=== PATIENT | female | born 1985 | race Caucasian/White ===

== ENCOUNTER 2023-06-04 08:39 | Emergency (ER) | payer OTHER, SELFPAY ==
[2023-06-04 08:44] VITALS: BP 133/79
[2023-06-04 08:53] LABS: Glucose - Point of Care 131 mg/dl (70-99)
[2023-06-04 09:11] LABS: % Basophils 0.4 % (0-2); % Eosinophils 0.5 % (0-6); % Immature Granulocytes 0.3 % (0-0.5); % Lymphocytes 21.3 % (20.5-51.1); % Monocytes 6.6 % (1.7-9.3); % Neutrophils 70.9 % (42.2-75.2); Absolute Lymphocytes 1.6 10^3/uL (1.2-3.4); Absolute Monocytes 0.5 10^3/uL (0.1-0.6); Absolute Neutrophils 5.4 10^3/uL (1.4-6.5); Hematocrit 40.2 % (37.0-47.0); Hemoglobin 13.9 g/dL (12.0-16.0); Mean Corp Hgb Conc. 34.6 g/dL (33.0-37.0); Mean Corpuscular Hgb 30.2 pg (27.0-31.0); Mean Corpuscular Volume 87.2 fL (81.0-99.0); Mean Platelet Volume 11.5 fL (7.4-10.4); Nucleated Red Blood Cells % 0 %; Platelet Count 279 10^3/uL (130-400); Red Blood Cell Count 4.61 10^6/uL (4.20-5.40); Red Cell Dist. Width 13.2 % (11.5-14.5); White Blood Cell Count 7.6 10^3/uL (4.8-10.8)
[2023-06-04 09:25] LABS: ALT (SGPT) 13 U/L (0-35); AST (SGOT) 17 U/L (14-36); Albumin 4.6 g/dl (3.5-5.0); Alkaline Phosphatase 70 U/L (38-126); Blood Urea Nitrogen 11 mg/dl (7-17); Calcium 9.8 mg/dl (8.4-10.2); Carbon Dioxide 23 mmol/L (22-30); Chloride 107 mmol/L (98-107); Glucose 129 mg/dl (70-99); Potassium 3.8 mmol/L (3.5-5.1); Sodium 138 mmol/L (135-145); Total Bilirubin 0.7 mg/dl (0.2-1.3); Total Protein 7.4 g/dl (6.3-8.2); eGFR > 60.00
[2023-06-04 10:18] LABS: Erythrocyte Sed Rate 14 mm/hour (0-20)
--- NOTE | 2023-06-04 10:41 | ED.GENMED ---
History of Present Illness
General
Chief Complaint: Dizziness
Source: patient and spouse
Exam Limitations: none
Time Seen by Provider: 06/04/23 10:17
Nursing documentation reviewed up to this point in time: agreed with
Travel History
Have you had any contact with someone who has COVID-19?: No
Do you have any symptoms of coronavirus? Fever > 100 degrees, chills, cough, shortness of breath, sore throat, loss of taste or smell, muscle aches, or headache?: No
History of Present Illness
History of Present Illness:
Patient is a 38-year-old female who presents to the emergency department complaining of approximately 5 days of feeling anxious with difficulty sleeping and waking with palpitations as well as a 5 pound weight loss and feeling nauseous. Patient
states that she has been being treated for lichen planus since February and does not seem to be getting better and she was getting anxious about it. Patient denies fever or chills. Patient denies nasal congestion, sore throat or cough. Patient
denies chest pain. Patient does feel short of breath when she gets the palpitations which she says her heart is racing. Patient has diminished appetite but denies any abdominal pain, nausea, vomiting or diarrhea. Patient denies any symptoms.
Patient denies any leg pain or swelling. Patient does admit to pruritus.
Past History
Past History
ED Past Medical History: GERD, HTN, Hypercholesterolemia and NIDDM
ED Past Surgical History: None
Social History
Tobacco: Smoker
Alcohol: Occasional
Drug: None
Personal:
Living: with family
Employment: Employed
Family History
Family History: Other (Noncontributory)
Review of Systems
Review of Systems
All Other Systems: ROS reviewed and negative except as documented in HPI and ROS
Constitutional: Reports weight loss, fatigue and sleep disturbance; Denies fever or chills
EENT: Reports no symptoms
Respiratory: Reports no symptoms
Cardiac: Reports palpitations; Denies chest pain, diaphoresis or syncope
ABD/GI: Reports anorexia; Denies abdominal pain, nausea, vomiting, diarrhea or constipated
: Reports no symptoms
Musculoskeletal: Reports no symptoms
Skin: Reports itching and rash
Neurological: Reports no symptoms
Hematologic/Lymphatic: Reports no symptoms
Psychiatric: Reports anxiety; Denies suicidal
Phy Exam
Physical Exam
Physical Exam:
Physical Exam
General: mild distress, alert and appropriate, well nourished, well hydrated
HENT: Normocephalic, supple with no lymphadenopathy, no thyromegaly
Eyes: Clear sclera, conjuctiva without injection
Heart: Regular rhythm and rate. No S3, S4. No murmur. No NVD
Lungs: No respiratory distress, no stridor, lung sounds clear and equal bilaterally
Abdomen: Soft, nontender, no organomegaly, no CVA tenderness, BS good
Neuro: Alert and oriented x 3, CN II - XII intact, no motor focality, no cerebellar dysfunction
Skin: diffuse faded erythematous papules
Psychiatric: well kept. interactive and cooperative. Anxious
Extremities: No edema, cyanosis, tenderness, Good and equal peripheral pulses.
Course
Orders/Labs/Results
Orders:
Orders
06/04/23 08:56
C-Reactive Protein Urgent
Comment: ADD ON
CMP [Comprehensive Metabolic Panel] Urgent
Complete Blood Count/With Diff Urgent
Erythrocyte Sed Rate Urgent
Comment: ADD ON
HCG, Serum Qualitative Screen Urgent
Comment: ADD ON
TSH Reflex To Free T4 Urgent
Comment: ADD ON
06/04/23 09:51
Add On- LAB Urgent
Tests Added?: ESR, CRP
06/04/23 10:32
Add On- LAB Urgent
Tests Added?: tsh reflex t4
0.9% Sodium Chloride 1000 ml [Nss] 1,000 ml IV BOLUS
Lorazepam [Ativan] 1 mg IV NOW STA
06/04/23 10:33
Electrocardiogram (*1) Urgent
Reason for Study: Palpitations
EKG- Treatment ONCE
06/04/23 11:09
Add On- LAB Urgent
Tests Added?: aerum qualitative hcg
Abnormal Lab Results
06/04/23 06/04/23
08:52 08:56
MPV 11.5 H fL
(7.4-10.4)
Glucose 129 H mg/dl
(70-99)
POC Glucose 131 H mg/dl
(70-99)
06/04/23 08:56
06/04/23 08:56
Vital Signs
Initial and Last Documented VS:
Initial Vital Signs
Temp Pulse Resp BP Pulse Ox
98.9 F 72 16 133/79 100
06/04/23 08:44 06/04/23 08:44 06/04/23 08:44 06/04/23 08:44 06/04/23 08:44
Last Documented Vital Signs
Temp Pulse Resp BP Pulse Ox
98.9 F 82 18 116/79 98
06/04/23 08:44 06/04/23 13:00 06/04/23 13:00 06/04/23 13:00 06/04/23 13:00
*Pulse Oximetry
Patient hypoxic: no
*Critical Care Note
Total Time (30-74mins, 75-104mins- exclusive of procedures): Not Applicable
Update Note
Update Note:
Patient admits to feeling anxious especially with regards to her dermatologic condition. Patient had a echocardiogram in September that was unremarkable. Patient had been on lisinopril and developed a cough so she was switched to losartan which may
have exacerbated or caused the lichen planus. Will try the patient on low-dose Toprol at bedtime along with a short course of Xanax. Patient will be instructed to follow-up with her aligning inspector for possible Holter/event monitor
ED Attending Note
-
Portions of this chart may have been created with voice recognition software.� Occasional wrong word or��sound alike� substitutions may have occurred due to the inherent limitations of voice recognition software.
Discharge Plan
Departure
Patient Disposition: Home (Routine Discharge)
Date of Disposition: 06/04/23
Time of Disposition: 13:21
Patient with high blood pressure during this ER visit?: No
Condition: Good
Covid-19: Not Applicable
Discharge Problem:
Palpitations, Anxiety
Instructions: Anxiety, Adult (DC), Palpitations (DC)
Prescriptions:
New
metoprolol succinate [Toprol XL] 25 mg tablet extended release 24 hr
25 mg PO HS Qty: 30 0RF
alprazolam [Xanax] 0.5 mg Tablet
0.5 mg PO HS Qty: 11 0RF
No Action
pantoprazole 40 MG tablet,delayed release (DR/EC)
40 mg PO DAILY Qty: 30 0RF
pantoprazole 40 MG tablet,delayed release (DR/EC)
40 mg PO DAILY Qty: 30 0RF
prednisone 50 MG tablet
50 mg PO DAILY Qty: 5 0RF
clindamycin HCl 150 MG capsule
300 mg PO Q6 Qty: 60 0RF
hydrocodone-acetaminophen 1 TABLET tablet
1 tab PO Q4HPRN PRN (Reason: pain) Qty: 10 0RF
Referrals:
Jc Rosales MD [Family Provider] - Follow up in 5-7 days
Lazaro López MD [Active] - Call in 1-3 days for appt
Shaheen Campos MD [Consulting Staff] - Call in 1-3 days for appt
Activity Restrictions/Additional Instructions:
Do not take the losartan. Make sure to follow-up with your family doctor. When you see your aligning inspector you may need a Holter/event monitor.
Interventions
Interventions:
*Risk Screen - Suicide Last Done: 06/04/23 11:05
*General Assessment Last Done: 06/04/23 11:05
*Neglect/Abuse Screening Last Done: 06/04/23 11:05
ED- Fall Risk Assessment Last Done: 06/04/23 11:05
*ED COVID-19 Vaccine History Last Done: 06/04/23 08:46
ED- Neurological Assessment Last Done: 06/04/23 11:05
ED- Cardiac Assessment Last Done: 06/04/23 11:05
ED Swallowing Screen Last Done: 06/04/23 12:01
Discharge Date and Time
Print Language: PERUVIAN
[2023-06-04 10:50] LABS: C-Reactive Protein < 5.00 mg/L (0.0-10.00)
[2023-06-04 11:03] VITALS: BP 125/74
[2023-06-04 11:05] VITALS: BMI 30.9
[2023-06-04] MEDS: ATIVAN 1 MG IV (11:10)
[2023-06-04] MEDS: NSS 1000 IV (11:10)
[2023-06-04 11:33] LABS: TSH Reflex To Free T4 2.12 uIU/ml (0.47-4.68)
[2023-06-04 11:52] LABS: HCG, Serum Qualitative Screen Negative
[2023-06-04 12:00] VITALS: BP 111/71
--- NOTE | 2023-06-04 12:32 | EDRN ---
Dr. Rosales in room w/pt and spouse at this time.
[2023-06-04 13:00] VITALS: BP 116/79
--- NOTE | 2023-06-04 13:00 | EDRN ---
Dr. Rosales in room w/ pt again.
--- NOTE | 2023-06-04 13:56 | EDRN ---
This RN checked via TT about discharge medications. Pt was informed to take both the amlodipine and toprol. Pt was on losartan until 04/15 when she started amlodipine. She said to me she had not told Dr. Rosales about the amlodipine and asked if
she should continue amlodipine so I TT'd Dr. Rosales and he confirmed pt is to take both meds. I informed pt and she verbalized her understanding to me.
== END 2023-06-04 11:55 | disposition home or self-care (01) ==
LOC: EMR 08:39
PROVIDERS: Emergency Medicine; EMERGENCY PHYSICIAN Emergency Medicine; FAMILY PHYSICIAN Internal Medicine
DX: R00.2 Palpitations (principal); R06.02 Shortness of breath; R11.0 Nausea; F41.9 Anxiety disorder, unspecified; R63.4 Abnormal weight loss; L43.9 Lichen planus, unspecified; E11.9 Type 2 diabetes mellitus without complications; E78.00 Pure hypercholesterolemia, unspecified; I10 Essential (primary) hypertension; K21.9 Gastro-esophageal reflux disease without esophagitis; F17.210 Nicotine dependence, cigarettes, uncomplicated; Z88.6 Allergy status to analgesic agent
CPT/HCPCS: 99284; 96374; 96361 ×2; 80053; 82962; 84443; 84703; 85025; 85652; 86140; 93005

== ENCOUNTER 2023-07-04 18:59 | Emergency (ER) | payer OTHER, SELFPAY ==
[2023-07-04 19:07] VITALS: BP 142/86
[2023-07-04 19:31] LABS: % Basophils 0.3 % (0-2); % Eosinophils 0.7 % (0-6); % Immature Granulocytes 0.2 % (0-0.5); % Lymphocytes 22.7 % (20.5-51.1); % Monocytes 8.5 % (1.7-9.3); % Neutrophils 67.6 % (42.2-75.2); Absolute Eosinophils 0.1 10^3/uL (0-0.7); Absolute Lymphocytes 2.1 10^3/uL (1.2-3.4); Absolute Monocytes 0.8 10^3/uL (0.1-0.6); Absolute Neutrophils 6.1 10^3/uL (1.4-6.5); Hematocrit 41.2 % (37.0-47.0); Hemoglobin 13.5 g/dL (12.0-16.0); Mean Corp Hgb Conc. 32.8 g/dL (33.0-37.0); Mean Corpuscular Hgb 29.5 pg (27.0-31.0); Mean Corpuscular Volume 90.2 fL (81.0-99.0); Mean Platelet Volume 11.4 fL (7.4-10.4); Nucleated Red Blood Cells % 0 %; Platelet Count 243 10^3/uL (130-400); Red Blood Cell Count 4.57 10^6/uL (4.20-5.40); Red Cell Dist. Width 13.1 % (11.5-14.5); White Blood Cell Count 9.1 10^3/uL (4.8-10.8)
[2023-07-04 19:45] LABS: ALT (SGPT) 14 U/L (0-35); AST (SGOT) 18 U/L (14-36); Albumin 4.8 g/dl (3.5-5.0); Alkaline Phosphatase 65 U/L (38-126); Blood Urea Nitrogen 9 mg/dl (7-17); Calcium 10.2 mg/dl (8.4-10.2); Carbon Dioxide 27 mmol/L (22-30); Chloride 104 mmol/L (98-107); Glucose 96 mg/dl (70-99); Potassium 3.9 mmol/L (3.5-5.1); Sodium 140 mmol/L (135-145); Total Bilirubin 0.7 mg/dl (0.2-1.3); Total Protein 7.6 g/dl (6.3-8.2); eGFR > 60.00
[2023-07-04 20:16] LABS: TSH Reflex To Free T4 1.43 uIU/ml (0.47-4.68)
[2023-07-04 21:06] VITALS: BP 140/79
[2023-07-04 22:00] VITALS: BP 118/80
[2023-07-04 23:00] VITALS: BP 118/76
[2023-07-05] VITALS: BP 123/81
--- NOTE | 2023-07-05 02:09 | ED.GENMED ---
History of Present Illness
General
Chief Complaint: Heart Rate Problem
Source: patient and records
Exam Limitations: none
Time Seen by Provider: 07/04/23 20:58
Nursing documentation reviewed up to this point in time: agreed with
Travel History
Have you had any contact with someone who has COVID-19?: No
Do you have any symptoms of coronavirus? Fever > 100 degrees, chills, cough, shortness of breath, sore throat, loss of taste or smell, muscle aches, or headache?: No
History of Present Illness
History of Present Illness:
38-year-old female with a past medical history of hypertension, hyperlipidemia, ex-smoker who presents to the emergency department for evaluation of palpitations. Patient reports that this has been an ongoing issue for the past month. She
describes a pattern of waking up in the morning with palpitations�she says palpitations typically wake her up around 5 AM. She says that when she gets these palpitations she begins to feel very anxious and becomes nauseated. She says that the
palpitations are not as bad later in the day but they do happen occasionally throughout the day with no clear trigger. For this reason she has had increased anxiety, nausea and poor appetite. She does not have any chest pain or breathing
difficulties. She does not have any syncope associated with the symptoms or even dizziness although she does feel more fatigued recently. She feels that symptoms are increasing over the past 2 weeks. She was initially seen for this in the
emergency room was told that it could be anxiety related was prescribed Xanax and low dose metoprolol for trial and was referred to cardiology. She says that she saw Dr. Joiner in the office--she says that she was instructed not to use the
metoprolol. Instead decision was made to discontinue all her medication including her blood pressure medication and so 2 weeks ago she took for a trial where she discontinued her blood pressure medication (losartan) which did not help and so she
resumed blood pressure medicine. She says that she did ask about a Holter monitor but baggage security checker wanted to hold off at least initially. She says that she ultimately never tried metoprolol and she also did not try any of the Xanax because she
says that she is convinced that her symptoms are not anxiety driven. She says that she is very frustrated and so she came to the emergency room to be reassessed for symptoms.
Past History
Past History
ED Past Medical History: GERD, HTN, Hypercholesterolemia and NIDDM
ED Past Surgical History: None
Social History
Tobacco: Smoker
Alcohol: Occasional
Drug: None
Personal:
Living: with family
Employment: Employed
Family History
Family History: Other (Noncontributory)
Review of Systems
Review of Systems
All Other Systems: ROS reviewed and negative except as documented in HPI and ROS
Constitutional: Reports fatigue; Denies fever
Respiratory: Denies cough or trouble breathing
Cardiac: Reports palpitations; Denies chest pain or syncope
ABD/GI: Reports nausea and anorexia; Denies abdominal pain, vomiting or diarrhea
: Denies flank pain
Musculoskeletal: Denies neck pain or back pain
Neurological: Denies headache, weakness or numbness
Phy Exam
Physical Exam
Physical Exam:
General: Awake, alert, oriented x3; anxious/frustrated but no acute distress
Head: Normocephalic, atraumatic
Eyes: Conjunctiva normal, EOMI
Throat: Airway intact, handling secretions
Neck: Trachea midline, supple without meningismus
Lungs: Clear to auscultation bilaterally, no wheezing, rales, rhonchi
Heart: Regular rate and rhythm, no murmurs, gallops, or rubs appreciated
Abd: Soft, non distended, nontender
Neuro: Cranial nerves grossly intact, speech fluid
Skin: no rash
Extremities: No edema in extremities, equal pulses in all extremities
Scores
Heart Failure Risk
Heart Failure Risk Score: Not Applicable
Heart Score for Chest Pain Patients
STEMI patient?: Not applicable
Withdrawal Assessment of Alcohol
Withdrawal Assessment Completed?: Not applicable
Course
Orders/Labs/Results
Orders:
Orders
07/04/23 19:09
Electrocardiogram (*1) Urgent
Reason for Study: Palpitations
07/04/23 19:10
EKG- Treatment ONCE
07/04/23 19:21
CMP [Comprehensive Metabolic Panel] Urgent
Complete Blood Count/With Diff Urgent
TSH Reflex To Free T4 Urgent
Abnormal Lab Results
07/04/23
19:21
MCHC 32.8 L g/dL
(33.0-37.0)
MPV 11.4 H fL
(7.4-10.4)
Absolute Monos (auto) 0.8 H 10^3/uL
(0.1-0.6)
Creatinine 0.5 L mg/dL
(0.6-1.0)
07/04/23 19:21
07/04/23 19:21
Vital Signs
Initial and Last Documented VS:
Initial Vital Signs
Temp Pulse Resp BP Pulse Ox
36.6 C 82 18 142/86 100
07/04/23 19:07 07/04/23 19:07 07/04/23 19:07 07/04/23 19:07 07/04/23 19:07
Last Documented Vital Signs
Temp Pulse Resp BP Pulse Ox
36.6 C 68 20 123/81 96
07/04/23 19:07 07/05/23 00:30 07/05/23 00:30 07/05/23 00:00 07/05/23 00:30
MDM/Problems Addressed
Differential Diagnosis Includes:
Cardiac dysrhythmia such as A-fib or SVT, PACs/PVCs, anxiety, sleep apnea consideration as she tends to have the symptoms that jolt her awake
MDM/Problems Addressed:
38-year-old female presents for palpitations that have been an ongoing issue for the past month as described above. She was initially seen in this ER and was also seen by baggage security checker with no clear diagnosis. There was a question of whether this
could be anxiety related. She came back for reassessment because symptoms are failing and she is quite frustrated without clear diagnosis. Vital signs here are within acceptable range. Her EKG shows a sinus rhythm with PACs; she has no delta
wave, no Brugada pattern, no signs of hypertrophy, normal QTc. She had a normal echocardiogram a year ago. Physical exam is benign as above. We have sent basic labs including CBC and CMP which were unremarkable. We sent off thyroid studies which
were normal. Patient was monitored on telemetry here for greater than 4 hours�she did have occasional palpitations and on review of the monitor she has PACs but no other serious events. The PACs do not necessarily track with her symptoms. While
PACs could account for her symptoms, they are unlikely to cause her to jolt awake in the very track sweeper which is one of her primary symptoms. I think sleep apnea is a consideration based on patient's body habitus and the way she is describing
the most severe symptoms which are in the morning. I think would be reasonable to consider a sleep study as she also reports increased fatigue is one of her main symptoms. Dysrhythmia consideration although considered somewhat less likely
especially since she had palpitations here and was in sinus rhythm persistently on the monitor. Nevertheless she is quite dissatisfied with the assessment by the initial baggage security checker; I did provide her information for the welfare interviewer to
consider for a second opinion. There is no clear indication for admission at this point in time I think she is stable to be discharged from the hospital. She will follow-up as above. I did advise her to start low-dose metoprolol to see if this
helps at all with her symptoms. Spoke about return precautions and all questions were answered.
*Pulse Oximetry
Patient hypoxic: no
*EKG
Interpreted by ED Provider?: Yes
Heart Rate: 56
Rate: normal
Rhythm: sinus and PAC's
Sunray: normal axis
Interval: normal interval
QRS Pattern: normal QRS
Ischemia: no ischemia
*Critical Care Note
Total Time (30-74mins, 75-104mins- exclusive of procedures): Not Applicable
Data Reviewed
Review of Other/Old Records Reveals: Labs, Records and Testing (Echocardiogram 10/13/22: CONCLUSIONS Normal left ventricular size, wall thickness and systolic function. No regional wall motion abnormalities are seen. Estimated ejection fraction
is 55- 60%. Normal diastolic function.)
Source: patient and records
ED Attending Note
-
Portions of this chart may have been created with voice recognition software.� Occasional wrong word or��sound alike� substitutions may have occurred due to the inherent limitations of voice recognition software.
Discharge Plan
Departure
Patient Disposition: Home (Routine Discharge)
Date of Disposition: 07/05/23
Time of Disposition: 00:33
Patient with high blood pressure during this ER visit?: No
Discharge Problem:
Heart palpitations, PAC (premature atrial contraction)
Instructions: Palpitations (DC)
Prescriptions:
New
metoprolol succinate [Toprol XL] 25 mg tablet extended release 24 hr
12.5 mg PO DAILY Qty: 30 0RF
No Action
pantoprazole 40 MG tablet,delayed release (DR/EC)
40 mg PO DAILY Qty: 30 0RF
pantoprazole 40 MG tablet,delayed release (DR/EC)
40 mg PO DAILY Qty: 30 0RF
prednisone 50 MG tablet
50 mg PO DAILY Qty: 5 0RF
clindamycin HCl 150 MG capsule
300 mg PO Q6 Qty: 60 0RF
hydrocodone-acetaminophen 1 TABLET tablet
1 tab PO Q4HPRN PRN (Reason: pain) Qty: 10 0RF
metoprolol succinate [Toprol XL] 25 mg tablet extended release 24 hr
25 mg PO HS Qty: 30 0RF
alprazolam [Xanax] 0.5 mg Tablet
0.5 mg PO HS Qty: 11 0RF
Referrals:
Jc Rosales MD [Family Provider] - Call in 1-3 days for appt
Brigido Delgado MD [Active] - Call in 1-3 days for appt (Window Shade Installer)
Activity Restrictions/Additional Instructions:
[facility]
[address], [address]
[place] [address]
Appointments:�[phone]�
Fax:�[phone]
Thank you for visiting the Emergency Department at [facility].
1. Please schedule a follow up appointment as directed. Call first thing tomorrow morning to make an appointment.
2. If indicated, please take your medications as instructed and indicated on discharge paperwork.
3. If any of your symptoms do not improve, or persist, or become more severe within 6-12 hours, please return to the emergency department for further care.
4. Please return to the emergency department if you develop a headache, neck pain/stiffness, fever greater than 100.4F, chest pain, shortness of breath, persistent nausea, vomiting, slurred speech, difficulty walking, numbness/tingling, weakness,
signs of infection or any other symptoms that are worrisome to you.
Please call [phone] if you have any questions.
Interventions
Interventions:
*Risk Screen - Suicide Last Done: 07/04/23 19:07
*General Assessment Last Done: 07/04/23 22:04
*Neglect/Abuse Screening Last Done: 07/04/23 19:07
*ED COVID-19 Vaccine History Last Done: 07/04/23 22:04
*Nursing Disposition Last Done: 07/05/23 00:55
ED- Cardiac Assessment Last Done: 07/04/23 22:04
ED- Pulmonary Assessment Last Done: 07/04/23 22:04
Discharge Date and Time
Discharge Date/Time: 07/05/23 00:56
Print Language: HUNGARIAN
== END 2023-07-05 00:56 | disposition home or self-care (01) ==
LOC: EMR 18:59
PROVIDERS: Student in an Organized Health Care Education/Training Program; EMERGENCY PHYSICIAN Emergency Medicine; FAMILY PHYSICIAN Internal Medicine
DX: R00.2 Palpitations (principal); I49.1 Atrial premature depolarization; F17.200 Nicotine dependence, unspecified, uncomplicated; I10 Essential (primary) hypertension; E78.00 Pure hypercholesterolemia, unspecified
CPT/HCPCS: 99284; 80053; 84443; 85025; 93005

== ENCOUNTER → 2023-08-25 06:38 | Day surgery (SDC) | payer OTHER, SELFPAY | LOC: GI 06:38 | PROVIDERS: ATTENDING PHYSICIAN Internal Medicine Gastroenterology | DX: R19.4 Change in bowel habit (principal); K64.8 Other hemorrhoids; K63.5 Polyp of colon; K57.30 Diverticulosis of large intestine without perforation or abscess without bleeding; K29.50 Unspecified chronic gastritis without bleeding; R10.13 Epigastric pain; R12 Heartburn; K31.7 Polyp of stomach and duodenum; K31.89 Other diseases of stomach and duodenum; R11.0 Nausea; K20.90 Esophagitis, unspecified without bleeding | CPT/HCPCS: 45380; 43239; 88305; 88342 ==